=== PATIENT | male | born 1960 | race Caucasian/White ===

== ENCOUNTER → 2018-01-06 13:51 | Outpatient (CLI) | payer OTHER, SELFPAY ==
--- NOTE | 2018-01-06 13:53 | VDLE_ITS ---
Reason For Study: LLE superficial thrombophlebitis RIGHT LEFT CFV is compressible, spontaneous, phasic, CFV is compressible, spontaneous, phasic, competent and demonstrates normal competent, and demonstrates normal augmentation. augmentation. FV is compressible, spontaneous, phasic, FV is compressible, spontaneous, phasic, competent and demonstrates normal competent and demonstrates normal augmentation. augmentation. POP V is compressible, spontaneous, phasic, POP V is compressible, spontaneous, phasic, competent and demonstrates normal competent and demonstrates normal augmentation. augmentation. T/P Trunk is compressible. T/P Trunk is compressible. PTV is compressible. PTV is compressible. RT PerV is compressible. LT PerV is compressible. SFJ is INCOMPETENT with reflux greater SFJ is INCOMPETENT with reflux greater than .5 sec than .5 sec GSV is INCOMPETENT with reflux greater GSV is INCOMPETENT in thigh with reflux than .5 sec and diameter of .42 x .43 cm greater than .5 sec and diameter of .76 SSV is competent. x .77 cm Procedure GSV is dilated and non-compressible below Exam performed in department. knee from prox to mid calf with multiple thrombus filled varicose veins in calf. GSV branch at S5 is INCOMPETENT with reflux greater than .5 sec and diameter of .46 x .51 cm SSV is competent. Interpretation Summary Deep veins of the lower extremities are bilaterally patent and compressible segmentally. There is no evidence of deep vein thrombosis on either side. Valvular competence appears intact within the proximal deep venous systems bilaterally. The right greater saphenous vein appears patent and compressible segmentally. Acute superficial thrombophlebitis is noted in the left greater saphenous vein below the knee from the proximal to mid-calf, and with acute superficial thrombophlebitis involving superficial varicosities in the left calf. Sapheno-femoral junctions are bilaterally incompetent . The right greater saphenous vein appears segmentally incompetent. The left greater saphenous vein appears incompetent above the knee. Small saphenous veins are patent and competent bilaterally. A left accessory saphenous vein at S5 is incompetent. Ordering Physician: Jimmy Ty Referring Physician: Courtney Cabello Performed By: Janie Marcano RVT
== END ==
PROVIDERS: Family Provider Family Medicine; PCP Family Medicine; Visit Provider Surgery
DX: I80.02 Phlebitis and thrombophlebitis of superficial vessels of left lower extremity (principal); I87.2 Venous insufficiency (chronic) (peripheral); I83.10 Varicose veins of unspecified lower extremity with inflammation
CPT/HCPCS: 93970

== ENCOUNTER → 2018-04-04 08:48 | Outpatient (CLI) | payer OTHER, SELFPAY ==
--- NOTE | 2018-04-04 08:51 | VDLE_ITS ---
Reason For Study: F/U SVT LLE RIGHT LEFT GSV is normal. CFV is compressible, spontaneous, phasic, CFV is compressible, spontaneous, phasic, competent, and demonstrates normal competent and demonstrates normal augmentation. augmentation. FV is compressible, spontaneous, phasic, FV is compressible, spontaneous, phasic, competent and demonstrates normal competent and demonstrates normal augmentation. augmentation. POP V is compressible, spontaneous, phasic, POP V is compressible, spontaneous, phasic, competent and demonstrates normal competent and demonstrates normal augmentation. augmentation. T/P Trunk is compressible. T/P Trunk is compressible. PTV is compressible. PTV is compressible. LT PerV is compressible. RT PerV is compressible. GSV is compressible in thigh Procedure GSV is non-compressible at knee becoming Exam performed in department. partially compressible distally with bright intraluminal echoes. Thrombus filled varicose veins noted lt medial calf. Interpretation Summary Deep veins of the lower extremities are bilaterally patent and compressible segmentally. There is no evidence of deep vein thrombosis on either side. Valvular competence appears intact within the proximal deep venous systems bilaterally. The right greater saphenous vein appears patent and compressible segmentally. The left greater saphenous vein is patent and compressible in the left thigh. Acute and chronic thrombosis is noted in the left greater saphenous vein at knee level and below. Acute superficial thrombophlebitis is noted involving superficial varicosities in the left medial calf. Ordering Physician: Jimmy Ty Referring Physician: Jimmy Ty Performed By: Janie Marcano RVT
== END ==
LOC: CVS 08:49
PROVIDERS: Family Provider Family Medicine; PCP Family Medicine; Visit Provider Surgery
DX: M79.89 Other specified soft tissue disorders (principal); I82.90 Acute embolism and thrombosis of unspecified vein; M79.609 Pain in unspecified limb; I87.2 Venous insufficiency (chronic) (peripheral); I83.10 Varicose veins of unspecified lower extremity with inflammation
CPT/HCPCS: 93970

== ENCOUNTER → 2018-05-16 11:13 | Outpatient (CLI) | payer OTHER, SELFPAY ==
[2018-05-16 13:24] LABS: PSA,Total - Annual Screen 0.52 ng/mL (0.00-4.00)
== END ==
PROVIDERS: Family Provider Family Medicine; PCP Family Medicine; Visit Provider Urology
DX: Z12.5 Encounter for screening for malignant neoplasm of prostate (principal)
CPT/HCPCS: 36415; 84153; G0103

== ENCOUNTER → 2018-09-05 08:00 | Outpatient (CLI) | payer OTHER, SELFPAY ==
--- NOTE | 2018-09-05 08:07 | VDLE_ITS ---
Reason For Study: Pain RIGHT LEFT CFV is compressible, spontaneous, phasic, CFV is compressible, spontaneous, phasic, competent and demonstrates normal competent, and demonstrates normal augmentation. augmentation. FV is compressible, spontaneous, phasic, FV is compressible, spontaneous, phasic, competent and demonstrates normal competent and demonstrates normal augmentation. augmentation. POP V is compressible, spontaneous, phasic, POP V is compressible, spontaneous, phasic, competent and demonstrates normal competent and demonstrates normal augmentation. augmentation. T/P Trunk is compressible. T/P Trunk is compressible. PTV is compressible. PTV is compressible. RT PerV is compressible. LT PerV is compressible. GSV is partially noncompressible for short GSV is dialted and non-compressible below segment below knee with bright echogenic knee. fillings consistent with chroic clot. Thrombus filled varicose veins noted in mid Procedure calf. Exam performed in department. Interpretation Summary Deep veins of the lower extremities are bilaterally patent and compressible segmentally. There is no evidence of deep vein thrombosis on either side. Valvular competence appears intact within the proximal deep venous systems bilaterally. Chronic venous changes are noted in a short segment of the right great saphenous vein below the right knee. Acute superficial thrombophlebitis is noted in the left great saphenous vein below the left knee, as well as in superficial varicosities in the left mid-calf. Ordering Physician: Jimmy Ty Performed By: Janie Marcano RVT and Student
== END ==
LOC: CVS 08:03
PROVIDERS: Family Provider Family Medicine; PCP Family Medicine; Visit Provider Surgery
DX: M79.609 Pain in unspecified limb (principal); I87.2 Venous insufficiency (chronic) (peripheral); I83.10 Varicose veins of unspecified lower extremity with inflammation; Z86.72 Personal history of thrombophlebitis
CPT/HCPCS: 93970

== ENCOUNTER → 2019-01-06 | Outpatient (CLI) | payer OTHER, SELFPAY ==
--- NOTE | 2019-01-06 08:54 | VDLE_ITS ---
Reason For Study: PAIN RIGHT LEFT CFV is compressible, spontaneous, phasic, CFV is compressible, spontaneous, phasic, competent and demonstrates normal competent, and demonstrates normal augmentation. augmentation. FV is compressible, spontaneous, phasic, FV is compressible, spontaneous, phasic, competent and demonstrates normal competent and demonstrates normal augmentation. augmentation. POP V is compressible, spontaneous, phasic, POP V is compressible, spontaneous, phasic, competent and demonstrates normal competent and demonstrates normal augmentation. augmentation. T/P Trunk is compressible. T/P Trunk is compressible. PTV is compressible. PTV is compressible. RT PerV is compressible. LT PerV is compressible. GSV is partially noncompressible for short GSV is dialted and non-compressible below segment below knee with bright echogenic knee. fillings consistent with chroic clot. Thrombus filled varicose veins noted in mid Procedure calf. Exam performed in department. Interpretation Summary Deep veins of the lower extremities are bilaterally patent and compressible segmentally. There is no evidence of deep vein thrombosis on either side. Valvular competence appears intact within the proximal deep venous systems bilaterally. Chronic venous changes are noted in the right greater saphenous vein below the knee. Acute superficial thrombophlebitis is noted involving the left greater saphenous vein below the knee, and superficial varicosities in the left mid-calf. Ordering Physician: Jimmy Ty Referring Physician: REGINO PAEZ Performed By: Pina Mendiola, KARELYCS, RVT
== END | disposition home or self-care (01) ==
LOC: CVS 08:52
PROVIDERS: Family Provider Family Medicine; PCP Family Medicine; Referring Provider Surgery; Visit Provider Surgery
DX: M79.604 Pain in right leg (principal); M79.605 Pain in left leg; I80.02 Phlebitis and thrombophlebitis of superficial vessels of left lower extremity; I87.2 Venous insufficiency (chronic) (peripheral)
CPT/HCPCS: 93970

== ENCOUNTER → 2019-05-22 | Outpatient (CLI) | payer OTHER, SELFPAY ==
[2019-05-22 11:51] LABS: PSA,Total - Annual Screen 0.76 ng/mL (0.00-4.00)
== END | disposition home or self-care (01) ==
PROVIDERS: Family Provider Family Medicine; PCP Family Medicine; Referring Provider Urology; Visit Provider Urology
DX: Z12.5 Encounter for screening for malignant neoplasm of prostate (principal)
CPT/HCPCS: 36415; 84153; G0103

== ENCOUNTER → 2020-06-24 07:55 | Outpatient (CLI) | payer OTHER, SELFPAY ==
--- NOTE | 2020-06-24 08:04 | VDLE_ITS ---
Reason For Study: Superficial thrombophlebitis RIGHT LEFT CFV is compressible, spontaneous, phasic, CFV is compressible, spontaneous, phasic, competent and demonstrates normal competent, and demonstrates normal augmentation. augmentation. FV is compressible, spontaneous, phasic, FV is compressible, spontaneous, phasic, competent and demonstrates normal competent and demonstrates normal augmentation. augmentation. POP V is compressible, spontaneous, phasic, POP V is compressible, spontaneous, phasic, competent and demonstrates normal competent and demonstrates normal augmentation. augmentation. T/P Trunk is compressible. T/P Trunk is compressible. PTV is compressible. PTV is compressible. RT PerV is compressible. LT PerV is compressible. Acute superficial vein thrombosis is noted in SFJ is INCOMPETENT and measures 1.02 x 1.16 the GSV from junction to prox calf, not cm. extending into the CFV. GSV proximal thigh measures 0.81 x 0.88 cm. Thrombus filled varicose veins noted in the GSV at knee measures 0.67 x 0.72 cm. right prox-mid calf. GSV INCOMPETENT throughout for greater than SSV at junction is competent and measures 0.5 seconds. 0.24 x 0.24 cm. SSV at junction is competent and measures Procedure 0.33 x 0.35 cm. Exam performed in department. Left GSV below knee is partially compressible A preliminary report was called and/or faxed with bright intraluminal echoes noted to Ty. consistent with chronic SVT. Interpretation Summary Deep veins of the lower extremities are bilaterally patent and compressible segmentally. There is no evidence of deep vein thrombosis on either side. Valvular competence appears intact within the proximal deep venous systems bilaterally. Acute superficial thrombophlebitis is noted in the right great saphenous vein from the proximal calf to the right sapheno-femoral junction, but not extending into the deep venous system. Chronic venous changes are noted in the left great saphenous vein below the knee, demonstrating partial compressibility and bright intraluminal echogenicity. The left great saphenous vein appears segmentally incompetent. Small saphenous veins are patent and competent bilaterally. Acute superficial thrombophlebitis is noted involving superficial varicosities in the right proximal and mid-calf. Ordering Physician: Jimmy Ty Referring Physician: Josephine Cabello Performed By: Matilda Fernández RVT
== END ==
LOC: CVS 08:00
PROVIDERS: PCP Family Medicine; Referring Provider Surgery; Visit Provider Surgery
DX: I80.3 Phlebitis and thrombophlebitis of lower extremities, unspecified (principal)
CPT/HCPCS: 93970

== ENCOUNTER → 2020-07-01 11:51 | Outpatient (CLI) | payer OTHER, SELFPAY ==
[2020-07-01 13:40] LABS: PSA,Total - Annual Screen 0.75 ng/mL (0.00-4.00)
== END ==
PROVIDERS: PCP Family Medicine; Referring Provider Urology; Visit Provider Urology
DX: Z12.5 Encounter for screening for malignant neoplasm of prostate (principal)
CPT/HCPCS: 36415; 84153; G0103

== ENCOUNTER → 2020-07-03 13:49 | Outpatient (CLI) | payer OTHER, SELFPAY ==
--- NOTE | 2020-07-03 13:52 | VDLE_ITS ---
Reason For Study: acute superficial thrombophlebitis RIGHT CFV is compressible, spontaneous, phasic, competent and demonstrates normal augmentation. FV is compressible, spontaneous, phasic, competent and demonstrates normal augmentation. POP V is compressible, spontaneous, phasic, competent and demonstrates normal augmentation. T/P Trunk is compressible. PTV is compressible. RT PerV is compressible. Acute superficial vein thrombosis is noted in the GSV from junction to prox calf, not extending into the CFV. SVT is 1.53 cm from the junction. Thrombus filled varicose veins noted in the right prox-mid calf. No significant change from previous study done 06/24/20. Procedure This is a venous duplex using B-mode, color flow and spectral Doppler. Exam performed in department. The exam was abbreviated due to the COVID 19 protocol. The exam was diagnostic. A preliminary report was called and/or faxed to Dr. Ty. Interpretation Summary Deep veins of the right lower extremity are patent and compressible segmentally. There is no evidence of right lower extremity deep vein thrombosis. Valvular competence appears intact within the proximal deep venous system on the right . Acute superficial thrombophlebitis is noted in the right great saphenous vein from the proximal calf to within 1.53 cm of the right sapheno-femoral junction. The superficial thrombus does not extend into the deep venous system. Acute superficial thrombophlebitis is noted involving superficial varicosities in the right proximal and mid-calf. There has been no significant change since a prior study on 06/24/2020. Ordering Physician: Jimmy Ty Performed By: Titi Hastings RVT
== END ==
LOC: CVS 13:50
PROVIDERS: PCP Family Medicine; Referring Provider Surgery; Visit Provider Surgery
DX: I80.01 Phlebitis and thrombophlebitis of superficial vessels of right lower extremity (principal)
CPT/HCPCS: 93971

== ENCOUNTER → 2020-10-28 07:57 | Outpatient (CLI) | payer OTHER, SELFPAY ==
--- NOTE | 2020-10-28 08:00 | VDLE_ITS ---
Reason For Study: Chronic venous insufficiency RIGHT LEFT CFV is compressible, spontaneous, phasic, CFV is compressible, spontaneous, phasic, competent and demonstrates normal competent, and demonstrates normal augmentation. augmentation. FV is compressible, spontaneous, phasic, FV is compressible, spontaneous, phasic, competent and demonstrates normal competent and demonstrates normal augmentation. augmentation. POP V is compressible, spontaneous, phasic, POP V is compressible, spontaneous, phasic, competent and demonstrates normal competent and demonstrates normal augmentation. augmentation. T/P Trunk is compressible. T/P Trunk is compressible. PTV is compressible. PTV is compressible. RT PerV is compressible. LT PerV is compressible. GSV is partially compressible throughout with SFJ is INCOMPETENT and measures 1.15 x 1.15 bright intraluminal echoes consistent with cm. Chronic DVT. GSV proximal thigh measures 0.85 x 0.87 cm. SFJ is INCOMPETENT and measures 0.72 x 1.18 GSV at knee measures 0.71 x 0.83 cm. cm. GSV INCOMPETENT throughout for greater than GSV proximal thigh measures 0.50 x 0.53 cm. 0.5 seconds. GSV at knee measures 0.35 x 0.39 cm. ASV mid calf is INCOMPETENT for greater than GSV INCOMPETENT throughout for greater than 0.5 seconds and measures 0.37 x 0.44 cm. 0.5 seconds. SSV at junction is INCOMPETENT for greater SSV at junction is competent and measures than 0.5 seconds and measures 0.25 x 0.31 cm. 0.34 x 0.33 cm. Procedure This is a venous duplex using B-mode, color flow and spectral Doppler. Exam performed in department. Patient was scanned in reverse Trendelenburg position during reflux assessment. Interpretation Summary Deep veins of the lower extremities are bilaterally patent and compressible segmentally. There is no evidence of deep vein thrombosis on either side. Valvular competence appears intact within the proximal deep venous systems bilaterally. Chronic venous changes are noted in the right great saphenous vein, which is partially compressible and demonstrates bright intraluminal echogenicity. The left great saphenous vein appears patent and compressible segmentally. Sapheno-femoral junctions are bilaterally incompetent . Segmental valvular incompetence is noted within the great saphenous veins bilaterally. The right small saphenous vein is patent and competent. The left small saphenous vein is patent and incompetent. The left accessory saphenous vein in the mid-calf is incompetent. Ordering Physician: Jimmy Ty Referring Physician: Courtney Cabello Performed By: Matilda Fernández RVT
== END ==
PROVIDERS: PCP Family Medicine; Referring Provider Surgery; Visit Provider Surgery
DX: I80.3 Phlebitis and thrombophlebitis of lower extremities, unspecified (principal)
CPT/HCPCS: 93970

== ENCOUNTER → 2021-03-27 08:42 | Outpatient (CLI) | payer OTHER, SELFPAY ==
--- NOTE | 2021-03-27 08:57 | EKG12_ITS ---
Test Reason : PREOP Blood Pressure : / mmHG Vent. Rate : 072 BPM Atrial Rate : 072 BPM P-R Int : 162 ms QRS Dur : 094 ms QT Int : 414 ms P-R-T Axes : 026 028 026 degrees QTc Int : 453 ms Normal sinus rhythm Normal ECG Confirmed by KAYLA REGAN, ALISTAIR ([id number]), communications editor HAIDER LANDIS ([id number]) on 03/28/2021 8:55:52 AM Referred By: RANDA Confirmed By:CHRISTO GARZA MD
[2021-03-27 09:38] LABS: Hematocrit 47.1 % (40-54); Hemoglobin 15.9 g/dL (13.0-16.5); Mean Corp Hgb Conc 33.8 g/dL (32-36); Mean Corpuscular Hgb 29.1 pg (27.0-32.0); Mean Corpuscular Volume 86.1 fL (80-94); Mean Platelet Vol. 9.1 fl (6.2-12.0); Platelet Count 239 K/mm3 (150-450); RBC Distribution Width CV 11.9 % (11.6-14.6); RBC Distribution Width SD 37.3 fl (35.1-43.9); Red Blood Count 5.47 M/mm3 (4.6-6.2); White Blood Count 5.5 K/mm3 (4.4-11.0)
[2021-03-27 10:08] LABS: Anion Gap 3 (5-15); BUN 10 mg/dL (7-18); BUN/Creat Ratio 10.1 RATIO (10-20); Calcium,Total 9.1 mg/dL (8.5-10.1); Chloride 106 mmol/L (98-107); Creatinine, Serum 0.99 mg/dL (0.70-1.30); EST Glomerular Filtration Rate 82 mL/min (>60); Est Glom Filt Rate - Afr Amer 99 mL/min (>60); Glucose 114 mg/dL (74-106); Sodium Level 139 mmol/L (136-145)
== END ==
LOC: PSN 08:46
PROVIDERS: PCP Family Medicine; Visit Provider Surgery
DX: Z01.810 Encounter for preprocedural cardiovascular examination (principal)
CPT/HCPCS: 36415; 80048; 85027; 87635; 93005; C9803; U0005; U0003

== ENCOUNTER 2021-04-10 14:50 | Emergency (ER) | payer OTHER, SELFPAY ==
[2021-04-10 14:51] VITALS: BP 136/71; PULSE 90; RESP 18; TEMP 37; O2SAT 99; BMI 29.2
--- NOTE | 2021-04-10 15:11 | VDLE_ITS ---
Reason For Study: pain Procedure LEFT This is a venous duplex using B-mode, color FV is compressible, spontaneous, phasic, flow and spectral Doppler. competent and demonstrates normal Exam performed in department. augmentation. The exam was abbreviated due to the COVID 19 POP V is compressible, spontaneous, phasic, protocol. competent and demonstrates normal The exam was diagnostic. augmentation. A preliminary report was called and/or faxed T/P Trunk is compressible. to Dr. Glass. PTV is compressible. LT PerV is compressible. GSV, ASV, SSV are occluded S/P EVLA. Varicose veins below the knee are dilated and noncompressible. Endovenous heat induced thrombus from the GSV does extend into the deep veins with a less than 50 % occlusion of the CFV. CFV is partially compressible. VL/Venous Duplex US, Unilateral Interpretation Summary The left great saphenous vein, small saphenous vein, and accessory saphenous ve in are occluded, consistent with a recent endothermal ablation procedure. There is an EHIT (endo venous heat-induced thrombosis) Class 2 thrombus at the left sapheno-femoral junction, occupying le ss than 50% of the left common femoral vein lumen. The remainder of the left lower extremity deep venous system is patent and compressible. The left femoral vein and popliteal vein are competent . Acute superficial thrombophlebitis is noted in superficial varicosities below the left knee. Ordering Physician: Herbert Glass Performed By: Titi Hastings RVRene
[2021-04-10 16:35] VITALS: BP 122/79; PULSE 79; RESP 16; TEMP 37; O2SAT 99
[2021-04-10 16:45] LABS: Absolute Lymphocyte Count 1.46 X10^3/uL (0.83-4.51); Absolute Neutrophil Count 5.3 X10^3/uL (2.0-7.7); Basophil# 0.03 X10^3/uL; Basophil% 0.4 % (0-1); Eosinophil# 0.31 X10^3/uL; Eosinophils% 3.8 % (0-5); Hematocrit 43.6 % (40-54); Hemoglobin 14.7 g/dL (13.0-16.5); Lymphocyte # 1.46 X10^3/ul (0.83-4.51); Lymphocyte % 18.1 % (19-41); Mean Corp Hgb Conc 33.7 g/dL (32-36); Mean Corpuscular Hgb 29.5 pg (27.0-32.0); Mean Corpuscular Volume 87.4 fL (80-94); Mean Platelet Vol. 8.6 fl (6.2-12.0); Monocyte# 0.97 X10^3/uL; NRBC Flagged by Analyzer 0 % (0-5); Neutrophil # 5.26 X10^3/uL (2.7-7.7); Neutrophil % 65.3 % (47-70); Platelet Count 263 K/mm3 (150-450); RBC Distribution Width CV 11.8 % (11.6-14.6); RBC Distribution Width SD 37.9 fl (35.1-43.9); Red Blood Count 4.99 M/mm3 (4.6-6.2); White Blood Count 8.1 K/mm3 (4.4-11.0)
[2021-04-10 16:55] LABS: Anion Gap 6 (5-15); BUN 14 mg/dL (7-18); BUN/Creat Ratio 14.5 RATIO (10-20); Calcium,Total 9.3 mg/dL (8.5-10.1); Chloride 103 mmol/L (98-107); Creatinine, Serum 0.96 mg/dL (0.70-1.30); EST Glomerular Filtration Rate 84 mL/min (>60); Est Glom Filt Rate - Afr Amer 102 mL/min (>60); Estimated Creatinine Clearance 84.49 ml/min; Glucose 103 mg/dL (74-106); Potassium 4.1 mmol/L (3.5-5.1); Sodium Level 141 mmol/L (136-145)
--- NOTE | 2021-04-10 17:04 | EDS_ITS ---
HPI History of Present Illness Chief Complaint: Wound Check Detail of Chief Complaint: Left lower extremity swelling and pain after vein stripping procedure a wee Informant: patient and spouse/S.O. Occured/Mechanism Comment: Pain and swelling left lower leg post procedure. Onset/Context/Timing Context: Gradual Onset Timing: Continuous Quality of Pain: Dull and Aching Current Severity: Moderate Maximum Severity: Moderate Narrative Narrative: Well-appearing 6-year-old male no acute distress vital signs stable afebrile. H EENT exam unremarkable. Lungs are clear. Heart regular rhythm. Abdomen soft nontender normal bowel sounds no peritoneal signs. Extremities moving all 4. Left leg status post vein stripping procedure from the knee down to the foot he has significant swelling and edema. Foot is neurovascular intact he can wiggle his toes. He is touch sensation. He has cap refill. This all appears to be swelling and not cellulitis. He has no inguinal lymphadenopathy. Prior similar symptoms: No Recent Illness/Hospitalization: No PFSH PFSH Medical History Diverticulosis Home Medications NK 04/10/21 [History Last Taken Unknown] oxycodone 10 mg PO TID PRN 7 Days #20 tab 04/10/21 [Rx Last Taken Unknown] rivaroxaban [Xarelto] 10 mg PO DAILY 10 Days #10 tab 04/10/21 [Rx Last Taken Unknown] Allergy/AdvReac Type Severity Reaction Status Date / Time No Known Allergies Allergy Verified 04/10/21 14:50 Surgical History H/O vein stripping Social History Smoking Status: Never smoker ROS ROS ED ROS Narrative Denies any recent illness. Review of Systems ROS Unobtainable: Denies due to encephalopathy Constitutional Constitutional ED: Denies chills or fever(s) Eyes Eyes: Denies change in vision ENT ENT ED: Denies ear pain or sore throat Cardiovascular Cardiovascular: Denies chest pain Respiratory/Chest Respiratory/Chest: Denies cough or dyspnea Gastrointestinal Gastrointestinal: Denies abdominal pain, diarrhea, nausea or vomiting Genitourinary Genitourinary ED: Denies dysuria Musculoskeletal Musculoskeletal: Denies myalgias Integumentary Denies rash Neurologic Neurologic: Denies headache(s) Psychiatric Psychiatric: Denies depression Endocrine Endocrinology: Denies polyuria Hematologic/Lymphatic Hematologic/Lymphatic: Denies easy bruising Allergic/Immunologic Allergic/Immunologic ED: Denies urticaria EXAM Physical Exam Narrative Exam Narrative: 6-year-old male no acute distress vital signs stable afebrile. Heart lung abdominal exam unremarkable. Left lower leg ankle and foot markedly swollen. Positive cap refill. Pitting edema. Touch sensation in the foot. No cellulitis. This does not appear to be infected. Consistent with a possible DVT. Const Vital Signs: 04/10/21 14:51 04/10/21 16:35 Temperature 98.6 F 98.6 F Temperature Source Oral Oral Pulse Rate 90 79 Respiratory Rate 18 16 Blood Pressure 136/71 H 122/79 H Blood Pressure Mean 92 93 Pulse Ox 99 99 Oxygen Delivery Method Room Air Room Air Positive well nourished and well developed General Appearance ED: well developed HEENT Reports moist mucous membranes normocephalic and atraumatic Eyes PERRL Neck full ROM and supple Thyroid: Negative for tender Chest Wall inspection of chest normal and palpation of chest normal Resp normal respiratory effort, no retractions and clear to auscultation bilaterally Auscultation: Negative for rales, rhonchi or wheezes Cardio regular rate, regular rhythm, S1 normal heart sound, S2 normal heart sound and no murmurs GI non-tender, non-distended and no masses Auscultation: normoactive bowel sounds Palpation: soft; Negative for tender or guarding Back/Spine no CVA tenderness Extremity normal to inspection Extremity Narrative: Left lower extremity 1-2+ pitting edema from the knee to the foot. Normal touch sensation. Wiggles toes. No cellulitis. Neuro oriented x3 and moves all extremities Sensorium / Orientation: alert, oriented to person, oriented to place and oriented to time Motor Exam: strength 5/5 throughout Psych mental status grossly normal Skin Lesions: no lesions Rashes: no rashes MDM MDM MDM Narrative Medical decision making narrative: Patient is postop superficial thrombus phlebitis and DVT femoral recent vein stripping. Was on anticoagulation postop but is now finished that course. I will speak to Dr. Jimmy Ty his vascular surgeon to discuss outpatient care. Dr. Ty wants in place the patient on Xarelto 10 mg a day for the next 10 days. He will follow him up in the office next week and get a repeat ultrasound. Patient is comfortable with the plan. Also be placed on something for pain. Lab Data Attestation: I reviewed the patient's lab results. Lab results narrative: CBC unremarkable white count 8. Hemoglobin 14. Electrolytes normal gap 6 normal creatinine 0.9. Noninvasive study of the left lower extremity showed varicose veins below the knee are dilated and noncompre ssible endovenous heat induced thrombus from the greater saphenous vein does extend into the deep veins with a less than 50% occlusion of the common femoral vein common femoral vein is partially compressible. This was read by the test and turn up technician. Discussed with patient. Labs: Laboratory Results - last 24 hr 04/10/21 04/10/21 16:30 16:30 WBC 8.1 RBC 4.99 Hgb 14.7 Hct 43.6 MCV 87.4 MCH 29.5 MCHC 33.7 RDW Std Deviation 37.9 RDW Coeff of Meagan 11.8 Plt Count 263 MPV 8.6 Immature Gran % (Auto) 0.400 Neut % (Auto) 65.3 Lymph % (Auto) 18.1 L [place] % (Auto) 12.0 H Eos % (Auto) 3.8 Baso % (Auto) 0.4 Absolute Neuts (auto) 5.3 Absolute Lymphs (auto) 1.46 Nucleated RBC % 0 Sodium 141 Potassium 4.1 Chloride 103 Carbon Dioxide 32.0 Anion Gap 6 BUN 14 Creatinine 0.96 Estim Creat Clear Calc 84.49 Est GFR (MDRD) Af Amer 102 Est GFR (MDRD) Non-Af 84 BUN/Creatinine Ratio 14.5 Glucose 103 Calcium 9.3 Discharge Plan Triage Chief Complaint: Wound Check Other Complaint: Lower Extremity Injury ED Provider: Herbert Glass Dx/Rx/DC Orders Clinical Impression: DVT (deep venous thrombosis), Postoperative superficial thrombophlebitis of left lower extremity Instructions: Venous Thromboembolism Prescriptions: New Xarelto 10 mg tablet 10 mg PO DAILY 10 Days Qty: 10 RF: 0 oxycodone 10 mg tablet 10 mg PO TID PRN (Reason: pain) 7 Days Qty: 20 RF: 0 No Action NK RF: 0 Primary Care Provider: Josephine Cabello Referrals: Josephine Cabello DO [Primary Care Provider] - Jimmy Ty MD [STAFF PHYSICIAN] - As soon as possible Activity Restrictions/Additional Instructions: Ice and elevate your left lower extremity is much as possible at least 5 times a day for half an hour each day. This will decrease pain and swelling. Call and follow-up with Dr. Jimmy Ty. Take your blood thinning medication as prescribed. Disposition Disposition: Home, Self Care
[2021-04-10 17:46] VITALS: BP 139/90; PULSE 72; RESP 16; O2SAT 99
[2021-04-10] MEDS: Rivaroxaban 10 MG Tablet PO (17:47)
[2021-04-10] MEDS: HYDROcodone Bitartrate/Apap 5/325 Tablet PO (17:47)
== END 2021-04-10 17:53 | disposition home or self-care (01) ==
PROVIDERS: Emergency Provider Emergency Medicine; PCP Family Medicine
DX: I80.02 Phlebitis and thrombophlebitis of superficial vessels of left lower extremity (principal); Z79.899 Other long term (current) drug therapy
CPT/HCPCS: 80048; 85025; 93971; 99284; A4216

== ENCOUNTER → 2021-04-18 07:49 | Outpatient (CLI) | payer OTHER, SELFPAY ==
[2021-04-10 14:51] VITALS: BMI 29.2
--- NOTE | 2021-04-18 07:50 | VDLE_ITS ---
Reason For Study: DVT RIGHT LEFT CFV is compressible, spontaneous, phasic, FV is compressible, spontaneous, phasic, competent and demonstrates normal competent and demonstrates normal augmentation. augmentation. Procedure POP V is compressible, spontaneous, phasic, This is a venous duplex using B-mode, color competent and demonstrates normal flow and spectral Doppler. augmentation. Exam performed in department. T/P Trunk is compressible. A preliminary report was called and/or faxed PTV is compressible. to Dr. Ty. LT PerV is compressible. GSV, SSV are occluded S/P EVLA. Varicose veins below the knee are dilated and noncompressible. Endovenous heat induced thrombus from the GSV does extend into the deep veins with a less than 50 % occlusion of the CFV. CFV is partially compressible ASV is compressible No significant change from previous study. VL/Venous Duplex US, Unilateral Interpretation Summary The left great saphenous vein and small saphenous vein are occluded, consistent with a recent endothermal ablation procedure. 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 The remainder of the left lower extremity deep venous system is pat ent and compressible. The left femoral vein and popliteal vein are competent. Acute superficial throm bophlebitis is noted in superficial varicosities below the left knee. There has been no significant change since a prior study on 04/10/2021. Ordering Physician: Jimmy Ty Referring Physician: Courtney Cabello Performed By: Adeline Jay, RDCS, RVT
== END ==
LOC: CVS 07:50
PROVIDERS: PCP Family Medicine; Visit Provider Surgery
DX: I82.412 Acute embolism and thrombosis of left femoral vein (principal)
CPT/HCPCS: 93971

== ENCOUNTER → 2021-05-19 11:03 | Outpatient (CLI) | payer OTHER, SELFPAY ==
--- NOTE | 2021-05-19 11:08 | VDLE_ITS ---
Reason For Study: F/U thrombus Procedure LEFT This is a venous duplex using B-mode, color CFV is compressible, spontaneous, phasic, flow and spectral Doppler. competent, and demonstrates normal Exam performed in department. augmentation. A preliminary report was called and/or faxed FV is compressible, spontaneous, phasic, to Dr. Ty @ 11:40 am. competent and demonstrates normal augmentation. POP V is compressible, spontaneous, phasic, competent and demonstrates normal augmentation. T/P Trunk is compressible. PTV is compressible. LT PerV is compressible. GSV is dilated and noncompressible S/P EVLA. Thrombus is noted barely extending into the SFJ. VL/Venous Duplex US, Unilateral Interpretation Summary The left great saphenous vein is occluded, consistent with a recent endothermal ablation procedure. There is an EHIT (endovenous heat-induced thrombosis) Class 2 thrombus at the l eft sapheno-femoral junction, occupying less than 50% of the left common femoral vein lumen, and le ss prominent than previously noted in a prior study on 04/18/2021. The remainder of the left lower extremity deep venous system is patent and compressible. Valvular competence appears intact wi thin the proximal deep venous system on the left . Ordering Physician: Jimmy Ty Referring Physician: Courtney Cabello Performed By: Kennedi Toure, RDCS, RVT
== END ==
LOC: CVS 11:04
PROVIDERS: PCP Family Medicine; Referring Provider Surgery; Visit Provider Surgery
DX: I82.812 Embolism and thrombosis of superficial veins of left lower extremity (principal)
CPT/HCPCS: 93971

== ENCOUNTER → 2021-06-05 09:39 | Outpatient (CLI) | payer OTHER, SELFPAY ==
--- NOTE | 2021-06-05 09:41 | VDLE_ITS ---
Reason For Study: assess EHIT thrombus Procedure LEFT This is a venous duplex using B-mode, color CFV is compressible, spontaneous, phasic, flow and spectral Doppler. competent, and demonstrates normal Exam performed in department. augmentation. The exam was abbreviated due to the COVID 19 FV is compressible, spontaneous, phasic, protocol. competent and demonstrates normal The exam was diagnostic. augmentation. POP V is compressible, spontaneous, phasic, competent and demonstrates normal augmentation. T/P Trunk is compressible. PTV is compressible. LT PerV is compressible. GSV is dilated and noncompressible S/P EVLA. CFV is now completely compressible. VL/Venous Duplex US, Unilateral Interpretation Summary Deep veins of the left lower extremity are patent and compressible segmentally. There is no evidence of left lower extremity deep vein thrombosis. Valvular competence appears intac t within the proximal deep venous system on the left . The left great saphenous vein is occluded, con sistent with a prior endothermal ablation procedure. The EHIT thrombosis, previously noted at the le ft sapheno-femoral junction, has resolved. Ordering Physician: Jimmy Ty Performed By: Titi Hastings, RVT
== END ==
LOC: CVS 09:39
PROVIDERS: PCP Family Medicine; Referring Provider Surgery; Visit Provider Surgery
DX: I82.402 Acute embolism and thrombosis of unspecified deep veins of left lower extremity (principal)
CPT/HCPCS: 93971

== ENCOUNTER 2021-11-10 11:07 | Outpatient (CLI) | payer BC, SELFPAY ==
[2021-11-10 12:18] LABS: PSA,Total - Annual Screen 0.73 ng/mL (0.00-4.00)
== END 2021-11-10 23:59 | disposition home or self-care (01) ==
PROVIDERS: PCP Family Medicine; Visit Provider Urology
DX: Z12.5 Encounter for screening for malignant neoplasm of prostate (principal)
CPT/HCPCS: 36415; 84153; G0103

== ENCOUNTER → 2022-11-23 | Outpatient (CLI) | payer BC, SELFPAY ==
[2022-11-23 10:57] LABS: PSA,Total - Annual Screen 0.78 ng/mL (0.00-4.00)
== END | disposition home or self-care (01) ==
LOC: LAB 08:46
PROVIDERS: PCP Family Medicine; Referring Provider Urology; Visit Provider Urology
DX: Z12.5 Encounter for screening for malignant neoplasm of prostate (principal)
CPT/HCPCS: 36415; 84153; G0103